=== PATIENT | male | born 1970 | race Caucasian/White ===

== ENCOUNTER 2023-07-10 20:07 | Emergency (ER) | payer BC, SELFPAY ==
[2023-07-10 20:12] VITALS: BP 182/80; PULSE 93; RESP 16; TEMP 36.9; O2SAT 97; BMI 35.9
--- NOTE | 2023-07-10 20:16 | ECG_ITS ---
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 Measurements Intervals [place] Rate: 93 P: 69 DC: 183 QRS: -22 QRSD: 163 T: 73 QT: 443 QTc: 554 Interpretive Statements SINUS RHYTHM POSSIBLE LEFT ATRIAL ENLARGEMENT [-0.1mV P-WAVE IN V1/V2] BORDERLINE LEFT AXIS DEVIATION [QRS AXIS < -20] RIGHT BUNDLE BRANCH BLOCK [120+ ms QRS DURATION, UPRIGHT V1, 40+ ms S IN I/aVL/V4/V5/V6] No previous ECG available for comparison Electronically Signed On 07-12-2023 19:16:20 CDT by Maylin Fu M.D. [email or web address]
--- NOTE | 2023-07-10 20:21 | XRR_ITS ---
PROCEDURE INFORMATION: Exam: XR Chest Exam date and time: 07/10/2023 8:35 PM Age: 53 years old Clinical indication: Chest wall pain; Additional info: Chest pain TECHNIQUE: Imaging protocol: Radiologic exam of the chest. Views: 1 view. COMPARISON: No relevant prior studies available. FINDINGS: Tubes, catheters and devices: Overlying monitor leads. Lungs: Mild patchy left basilar opacity. Mild increased markings right lung base. No consolidation. No significant pulmonary vascular congestion/edema. Pleural spaces: Decreased visualization left costophrenic angle suggesting small or trace effusion versus pleural thickening. Right costophrenic angle is clear. No pneumothorax. Heart/Mediastinum: Cardiomegaly. Bones/joints: Visualized osseous structures show no acute abnormality. XR/XR chest 1V portable [id number] IMPRESSION: 1. Cardiomegaly. 2. Mild patchy left basilar opacity and mild increased markings right lung base and consider mild basilar pneumonia/atelectasis. 3. Findings suggestive of either trace effusion versus mild pleural thickening left costophrenic angle.
--- NOTE | 2023-07-10 20:25 | PC.NURSE ---
Pt on bedside property assessment monitor
--- NOTE | 2023-07-10 20:47 | ED_ITS ---
HPI - Chest Pain 2 General: Chief Complaint: Chest Pain Stated Complaint: Chest pain,SOB Time Seen by Provider: 07/10/23 20:21 History of Present Illness: Patient presents to the ER with complaints of intermittent chest pain and shortness of breath. Patient does have a history of CHF. Patient says the shortness of breath is worse when he lies down. The chest pain comes and goes with no known causes. It is kind of a pressure with sometimes sharp and stabbing over on the left anterior chest wall sometimes radiates to the back shoulder blade. Breathing does not bring it on. Patient does not feel like he is fluid overloaded at this time. Patient denies any fever or chills. Patient does state that he has had some overall body aches and joint aches for about the last week but these are getting a little bit better but the shortness of breath is getting a bit worse. Review of Systems 2 General: Reports: 10 or more systems reviewed and unremarkable except in HPI and below Physical Exam 2 Const: COMMON NORMALS: no acute distress, average body habitus, patient oriented x3, no limitations, healthy appearing, alert and well nourished HENMT: COMMON NORMALS: normocephalic, atraumatic, hearing grossly normal bilaterally, external ears normal, Normal external nose present, moist oral mucous membranes and oropharynx normal HEAD & SCALP: normocephalic and atraumatic NOSE: Normal external nose present EXTERNAL EAR: Yes external ears normal Eye: COMMON NORMALS: Equal, round and reactive pupils present, EOMs intact bilaterally, conjunctivae normal and no scleral icterus CONJUNCTIVA: Yes conjunctivae normal PUPIL: Yes Equal, round and reactive pupils present Neck/C-Spine: COMMON NORMALS: full ROM, no lymphadenopathy, supple, no meningeal signs, no JVD and Thyroid normal THYROID: Thyroid normal Chest: COMMONS NORMALS: normal inspection of the chest and normal palpation of entire chest wall Resp: COMMON NORMALS: normal respiratory effort, No retractions, No use of accessory muscles and clear to auscultation bilaterally AUSCULTATION: clear to auscultation bilaterally Cardio: COMMON NORMALS: no JVD, regular rate, regular rhythm, S1 normal heart sound present, S2 normal heart sound present, No gallops present (Cardio), No clicks present (Cardio), No murmurs present (Cardio) and No rub (Cardio) R ATE: regular rate RHYTHM: regular rhythm HEART SOUNDS: S1 normal heart sound present and S2 normal heart sound present GI: COMMON NORMALS: Normal to inspection, nondistended, normoactive bowel sounds present, Soft to palpation, non-tender, No hepatosplenomegaly present and no masses PALPATION: Yes Soft to palpation and Yes No hepatosplenomegaly present Extremity: NARRATIVE EXTREMITY EXAM: Negative edema bilateral lower extremities Neuro: COMMON NORMALS: patient oriented x3 SENSORIUM/ORIENTATION: Yes alert MENINGEAL SIGNS: Yes no meningeal signs Course 2 Vital Signs: Vital signs: Vital Signs Temperature 98.5 F 07/10/23 20:12 Pulse Rate 93 07/10/23 20:12 Respiratory Rate 16 07/10/23 20:12 Blood Pressure 182/80 07/10/23 20:12 Pulse Oximetry 97 07/10/23 20:12 Oxygen Delivery Me thod Room Air 07/10/23 20:12 MDM - Chest Pain Medical Decision Making Patient a workup which included blood work, chest x-ray, EKGs, chest x-ray showed mild patchy left basilar opacity consistent with pneumonia or atelectasis. White count was normal at 8.19, EKGs were unremarkable respiratory panel was negative, these results was discussed with the patient. In the light of him having worsening shortness of breath we will go ahead and treat him for pneumonia. Patient will be given a dose of Augmentin here and prescription sent to his pharmacy. Differential Diagnosis Unlikely acute massive pulmonary embolism, acute respiratory failure, acute myocardial infarction, cardiac arrest or sudden cardiac Lab Data I reviewed the patient's lab results. 07/10/23 20:30 07/10/23 20:30 Radiology Impressions Chest X-Ray 07/10/23 20:21 IMPRESSION: 1. Cardiomegaly. 2. Mild patchy left basilar opacity and mild increased markings right lung base and consider mild basilar pneumonia/atelectasis. 3. Findings suggestive of either trace effusion versus mild pleural thickening left costophrenic angle. Laboratory Results WBC 8.19 10^3/uL (3.29-11.43) 07/10/23 20:30 RBC 4.65 10^6/uL (3.85-5.65) 07/10/23 20:30 Hgb 14.10 g/dL (11.27-16.99) 07/10/23 20:30 Hct 43.3 % (37-53) 07/10/23 20:30 MCV 93.1 fl (82-101) 07/10/23 20:30 MCH 30.3 pg (27-33) 07/10/23 20: MCHC 32.6 g/dL (30-55) 07/10/23 20:30 RDW 14.3 % (12.1-15.1) 07/10/23 20: Plt Count 171 10^3/cmm (157-399) 07/10/23 20: MPV 11.0 fL (7.4-10.4) H 07/10/23 20:30 Neut % (Auto) 55.8 % 07/10/23 20:30 Lymph % (Auto) 31.4 % 07/10/23 20: [place] % (Auto) 10.0 % 07/10/23 20:30 Eos % (Auto) 2.1 % 07/10/23 20: Baso % (Auto) 0.6 % 07/10/23 20: Neut # (Auto) 4.57 10^3/uL (1.8-7.7) 07/10/23 20: Lymph # (Auto) 2.6 10^3/uL (0.8-4.8) 07/10/23 20:30 [place] # (Auto) 0.8 10^3/uL (0.2-0.9) 07/10/23 20: Eos # (Auto) 0.2 10^3/uL (0.0-0.8) 07/10/23 20: Baso # (Auto) 0.1 10^3/uL (0.0-0.1) 07/10/23 20: Nucleated RBC % (auto) 0 % 07/10/23 20: Nucleated RBCs # 0.0 /100WBC 07/10/23 20:30 Sodium 138 mmol/L (136-145) 07/10/23 20: Potassium 4.1 mmol/L (3.5-5.1) 07/10/23 20: Chloride 105 mmol/L (98-107) 07/10/23 20: Carbon Dioxide 25 mmol/L (22-29) 07/10/23 20: Anion Gap 12.1 (5-19) 07/10/23 20:30 BUN 12 mg/dL (6-20) 07/10/23 20:30 Creatinine 0.9 mg/dL (0.7-1.2) 07/10/23 20:30 GFR Calculation 88.6 mL/min (90-130) L 07/10/23 20:30 Glucose 102 mg/dL (65-115) 07/10/23 20:30 Calculated Osmolality 286 mOsm/kg (285-295) 07/10/23 20: Lactic Acid 1.5 mmol/L (0.5-2.2) 07/10/23 20:30 Calcium 8.8 mg/dL (8.5-10.5) 07/10/23 20: Total Bilirubin 1.1 mg/dL (0.15-1.2) 07/10/23 20:30 AST 81 U/L (0-40) H 07/10/23 20: ALT 54 U/L (0-41) H 07/10/23 20:30 Alkaline Phosphatase 101 U/L (40-130) 07/10/23 20:30 Troponin T Baseline 36 ng/L (0-15) H 07/10/23 20: Troponin T 120 Minute 40.66 ng/L (0-15) H 07/10/23 22:30 Delta Troponin T 4.66 ABS# (0-10) 07/10/23 22:30 NT-Pro-B Natriuret Pep 621 pg/mL (0-125) H 07/10/23 20:30 Total Protein 6.6 g/dL (6.6-8.7) 07/10/23 20: Albumin 3.3 g/dL (3.5-5.2) L 07/10/23 20:30 Globulin 3.3 g/dL (1.3-4.6) 07/10/23 20:30 Procalcitonin 0.07 ng/mL (0-0.5) 07/10/23 20:30 Adenovirus (PCR) Not detected (NOT DETECT) 07/10/23 21:05 C. pneumoniae DNA (PCR) Not detected (NOT DETECT) 07/10/23 21:05 Coronavirus 229E (PCR) Not detected (NOT DETECT) 07/10/23 21:05 Human Metapneumovir PCR Not detected (NOT DETECT) 07/10/23 21:05 Influenza A (H1) PCR Not detected (NOT DETECT) 07/10/23 21:05 Influ A (H1/09) PCR Not detected (NOT DETECT) 07/10/23 21:05 Influenza A (H3) PCR Not detected (NOT DETECT) 07/10/23 21:05 Influenza Type A (PCR) Not detected (NOT DETECT) 07/10/23 21:05 Influenza Type B (PCR) Not detected (NOT DETECT) 07/10/23 21:05 M. pneumoniae (PCR) Not detected (NOT DETECT) 07/10/23 21:05 Parainfluenza 1 (PCR) Not detected (NOT DETECT) 07/10/23 21:05 Parainfluenza 2 (PCR) Not detected (NOT DETECT) 07/10/23 21:05 Parainfluenza 3 (PCR) Not detected (NOT DETECT) 07/10/23 21:05 Parainfluenza 4 (PCR) Not detected (NOT DETECT) 07/10/23 21:05 RSV Type A (PCR) Not detected (NOT DETECT) 07/10/23 21:05 RSV Type B (PCR) Not detected (NOT DETECT) 07/10/23 21:05 Entero/Rhino (PCR) Not detected (NOT DETECT) 07/10/23 21:05 SARS-CoV-2 (PCR) Not detected (NOT DETECT) 07/10/23 21:05 All radiology interpretation(s) finalized by discharge Discharge Plan Discharge Patient Disposition: Home Clinical Impression: Left lower lobe pneumonia Qualifiers: Pneumonia type: due to unspecified organism Qualified Code(s): J18.9 - Pneumonia, unspecified organism Chest pain Qualifiers: Chest pain type: unspecified Qualified Code(s): R07.9 - Chest pain, unspecified Condition: Stable Prescriptions: New amoxicillin-pot clavulanate 875-125 mg tablet 1 tab PO Q12H Qty: 20 0RF Discharge Orders: Discharge ED (Routine); Ordered 07/10/23 Ordered By: Vinay Salgado Patient Instructions: Pneumonia (ED), Chest Pain (ED) Activity Restrictions/Additional Instructions: Thank you for choosing [facility] for your healthcare needs today. Please realize that you were seen in the emergency department and that we are providing you with an emergency medical screening exam and this may not be a complete and all exclusive of all testing and/or medical workup we may need to determine your element or severity of your illness. It is very important that you follow-up as instructed with your primary care provider or specialist for the additional evaluation and to discuss your medical treatment plan. You may return to the emergency department should you have concerns or if your condition changes or worsens in any way. Coding Level of Care Code ED Vpk Teacher for Dariusz Pinon
[2023-07-10 20:52] LABS: Basophils # 0.1 10^3/uL (0.0-0.1); Basophils % 0.6 %; Eosinophils # 0.2 10^3/uL (0.0-0.8); Eosinophils % 2.1 %; Hematocrit 43.3 % (37-53); Lymphocytes # 2.6 10^3/uL (0.8-4.8); Lymphocytes % 31.4 %; Mean Corpuscular HGB Conc 32.6 g/dL (30-55); Mean Corpuscular Hemoglobin 30.3 pg (27-33); Mean Corpuscular Volume 93.1 fl (82-101); Monocytes # 0.8 10^3/uL (0.2-0.9); Neutrophils # 4.57 10^3/uL (1.8-7.7); Neutrophils % 55.8 %; Nucleated Red Blood Cells % 0 %; Platelet Count 171 10^3/cmm (157-399); Red Blood Count 4.65 10^6/uL (3.85-5.65); Red Cell Distribution Width 14.3 % (12.1-15.1); White Blood Count 8.19 10^3/uL (3.29-11.43)
[2023-07-10 21:14] LABS: Troponin(5th) Baseline 36 ng/L (0-15)
[2023-07-10 21:24] LABS: Alanine Aminotransferase 54 U/L (0-41); Albumin Level 3.3 g/dL (3.5-5.2); Alkaline Phosphatase 101 U/L (40-130); Aspartate Amino Transferase 81 U/L (0-40); Blood Urea Nitrogen 12 mg/dL (6-20); Calcium 8.8 mg/dL (8.5-10.5); Carbon Dioxide 25 mmol/L (22-29); Chloride 105 mmol/L (98-107); Creatinine Clr Calc Pharmacy 128.5245; Globulin 3.3 g/dL (1.3-4.6); Glomerular Filtration Rate 88.6 mL/min (90-130); Glucose 102 mg/dL (65-115); NT Pro B Type Natriuretic Pept 621 pg/mL (0-125); Osmolality Calculated 286 mOsm/kg (285-295); Sodium 138 mmol/L (136-145); Total Bilirubin 1.1 mg/dL (0.15-1.2); Total Protein 6.6 g/dL (6.6-8.7)
[2023-07-10 21:25] LABS: Anion Gap 12.1 (5-19); Potassium 4.1 mmol/L (3.5-5.1)
[2023-07-10 22:15] LABS: Lactic Sepsis W/Reflex 1.5 mmol/L (0.5-2.2)
[2023-07-10 22:22] LABS: Procalcitonin 0.07 ng/mL (0-0.5)
[2023-07-10 22:52] LABS: Adenovirus Not Detected (NOT DETECT); Chlamydia Pneumoniae Not Detected (NOT DETECT); Coronavirus 229E,HKU1,NL63,OC4 Not Detected (NOT DETECT); Human Metapneumovirus Not Detected (NOT DETECT); Human Rhinovirus/Enterovirus Not Detected (NOT DETECT); Influenza A Not Detected (NOT DETECT); Influenza A H1 Not Detected (NOT DETECT); Influenza A H1-2009 Not Detected (NOT DETECT); Influenza A H3 Not Detected (NOT DETECT); Influenza B Not Detected (NOT DETECT); Mycoplasma Pneumoniae Not Detected (NOT DETECT); Parainfluenza Virus Type 1 Not Detected (NOT DETECT); Parainfluenza Virus Type 2 Not Detected (NOT DETECT); Parainfluenza Virus Type 3 Not Detected (NOT DETECT); Parainfluenza Virus Type 4 Not Detected (NOT DETECT); Respiratory Syncytial Virus A Not Detected (NOT DETECT); Respiratory Syncytial Virus B Not Detected (NOT DETECT); SARS-COV-2 Not Detected (NOT DETECT)
[2023-07-10 23:00] LABS: Troponin 5 2HR 40.66 ng/L (0-15); Troponin 5 2HR Delta 4.66 ABS# (0-10)
--- NOTE | 2023-07-10 23:10 | ECG_ITS ---
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 Measurements Intervals [place] Rate: 93 P: 71 MN: 197 QRS: -39 QRSD: 169 T: 70 QT: 437 QTc: 544 Interpretive Statements SINUS RHYTHM POSSIBLE LEFT ATRIAL ENLARGEMENT [-0.1mV P-WAVE IN V1/V2] LEFT AXIS DEVIATION [QRS AXIS < -30] RIGHT BUNDLE BRANCH BLOCK [120+ ms QRS DURATION, UPRIGHT V1, 40+ ms S IN I/aVL/V4/V5/V6] Compared to ECG 07/10/2023 20:16:25 No significant changes Electronically Signed On 07-12-2023 19:48:06 CDT by Maylin Fu M.D. [id number]
[2023-07-10 23:41] VITALS: BP 143/98; PULSE 84; RESP 20; O2SAT 95
== END 2023-07-10 23:42 | disposition home or self-care (01) ==
PROVIDERS: Emergency Provider Emergency Medicine
DX: J18.9 Pneumonia, unspecified organism (principal); R07.9 Chest pain, unspecified; Z11.52 Encounter for screening for COVID-19; I50.9 Heart failure, unspecified
CPT/HCPCS: 71045; 80053; 83605; 83880; 84145; 84484; 85025; 87486; 87581; 87633; 93005; 99285